=== PATIENT | male | born 1945 | race Caucasian/White ===

== ENCOUNTER 2016-05-22 21:19 | Inpatient (IN) | payer MEDICARE, BC ==
[~2016-05-22] VITALS: Ht 180.3 cm; Wt 87.0 kg
[2016-05-22 22:02] VITALS: BP 174/89; PULSE 76; TEMP 99.5
[2016-05-22] MEDS ORDERED: TENORMIN 2525 MG/TAB PO (23:02)
[2016-05-22] MEDS ORDERED: PLAVIX 75MG TAB75 MG PO (23:10)
[2016-05-22] MEDS ORDERED: CARTIA XT120 MG PO (23:12)
[2016-05-22] MEDS ORDERED: CATAPRES0.2 MG PO (23:14)
[2016-05-22] MEDS ORDERED: LANOXIN 0.120.125 MG PO (23:17)
[2016-05-22] MEDS ORDERED: PRINIVIL5 MG PO (23:18)
[2016-05-22 23:20] VITALS: BP 169/99; PULSE 77; TEMP 98.9
[2016-05-22] MEDS ORDERED: RT SPIRIVA18 MCG IH (23:20)
[2016-05-22] MEDS ORDERED: ANAFRANIL 25MG25 MG PO (23:22)
[2016-05-22] MEDS ORDERED: RITALIN SR20 MG PO (23:24)
[2016-05-22] MEDS ORDERED: QUESTRAN4 GM/9 GM PO (23:25)
[2016-05-22] MEDS ORDERED: ZYLOPRIM 100MG100 MG PO (23:27)
[2016-05-22] MEDS ORDERED: ZANTAC 150MG T150 MG PO (23:29)
[2016-05-22] MEDS ORDERED: PRILOSEC 20MG20 MG PO (23:39)
[2016-05-22] MEDS ORDERED: XYREM500 MG/ML PO (23:44)
[2016-05-22] MEDS ORDERED: HYGROTON 2525 MG/TAB PO (23:46)
[2016-05-23] VITALS (536 sets, daily range): BP systolic 133–191; BP diastolic 69–110; PULSE 56–150; TEMP 97.2–98.5; O2SAT 83–100
[2016-05-23 02:32] LABS: TROPONIN-I 0.063 ng/mL (0.000-0.034)
[2016-05-23 08:19] LABS: ADJUSTED CALCIUM 9.1 mg/dL (8.4-10.2); ALBUMIN 3.7 gm/dL (3.5-5.0); BILIRUBIN,TOTAL 0.7 mg/dL (0.0-1.0); CALCIUM 8.9 mg/dL (8.4-10.2); CREATININE, serum 1.43 mg/dL (0.66-1.25); TOTAL PROTEIN 7.4 gm/dL (6.4-8.2)
[2016-05-23 08:20] LABS: BASO % 0.6 % (0.0-2.0); EOS # 0.1 (0.0-0.7); EOS % 1.1 % (0-4.0); GRAN % 63.8 % (42.2-75.2); HEMATOCRIT 47.1 % (42.0-52.0); LYMPH % 15.5 % (20.0-51.0); MEAN CELL VOLUME 88 fl (80.0-100.0); MEAN CORPUSCULAR HEMOGLOBIN 30 pg (27.0-31.0); MEAN CORPUSCULAR HGB CONC 34 g/dl (33.0-37.0); MEAN PLATELET VOLUME 10.6 fl (7.4-10.4); MONO # 1.1 (0.1-0.6); MONO % 17.9 % (1.7-9.3); PLATELET COUNT 140 K/mm3 (130-400); RED BLOOD COUNT 5.36 M/mm3 (4.20-5.60); REDCELL DISTRIBUTION WIDTH-CV 13.5 % (11.5-14.5); WHITE BLOOD COUNT 6.2 K/mm3 (4.8-10.8)
[2016-05-23 12:24] LABS: MAGNESIUM 2.1 mg/dL (1.6-2.3)
[2016-05-23 12:28] LABS: PARTIAL THROMBOPLASTIN TIME 31.7 SECONDS (26.0-37.0)
[2016-05-23 12:44] LABS: TROPONIN-I 0.09 ng/mL (0.000-0.034)
[2016-05-24] VITALS (320 sets, daily range): BP systolic 146–193; BP diastolic 72–97; PULSE 56–97; TEMP 98.1–99.9; O2SAT 87–100
[2016-05-24 06:03] LABS: BASO % 0.4 % (0.0-2.0); EOS # 0.3 (0.0-0.7); EOS % 4.2 % (0-4.0); GRAN # 5.2 (1.4-6.5); GRAN % 69.5 % (42.2-75.2); HEMOGLOBIN 14.4 g/dl (13.5-18.0); LYMPH % 12.7 % (20.0-51.0); MEAN CELL VOLUME 90 fl (80.0-100.0); MEAN CORPUSCULAR HEMOGLOBIN 29 pg (27.0-31.0); MEAN CORPUSCULAR HGB CONC 33 g/dl (33.0-37.0); MEAN PLATELET VOLUME 11.1 fl (7.4-10.4); MONO % 12.9 % (1.7-9.3); PLATELET COUNT 164 K/mm3 (130-400); REDCELL DISTRIBUTION WIDTH-CV 13.7 % (11.5-14.5); WHITE BLOOD COUNT 7.5 K/mm3 (4.8-10.8)
[2016-05-24 06:12] LABS: CALCIUM 8.3 mg/dL (8.4-10.2); CREATININE, serum 1.39 mg/dL (0.66-1.25); POTASSIUM 3.9 mmol/L (3.4-5.0)
[2016-05-24 06:26] LABS: TROPONIN-I 0.047 ng/mL (0.000-0.034)
[2016-05-25] VITALS (8 sets, daily range): BP systolic 135–174; BP diastolic 61–100; PULSE 58–65; TEMP 98.2–98.7
[2016-05-25 08:36] LABS: HEMATOCRIT 43.6 % (42.0-52.0); HEMOGLOBIN 14.8 g/dl (13.5-18.0); MEAN CELL VOLUME 88 fl (80.0-100.0); MEAN CORPUSCULAR HEMOGLOBIN 30 pg (27.0-31.0); MEAN CORPUSCULAR HGB CONC 34 g/dl (33.0-37.0); PLATELET COUNT 169 K/mm3 (130-400); RED BLOOD COUNT 4.93 M/mm3 (4.20-5.60); REDCELL DISTRIBUTION WIDTH-CV 13.5 % (11.5-14.5); WHITE BLOOD COUNT 8.2 K/mm3 (4.8-10.8)
[2016-05-25] MEDS ORDERED: BETAPACE 80MG80 MG PO (11:52)
[2016-05-25] MEDS ORDERED: ASPIRIN E.C. 8181 MG PO (11:52)
[2016-05-25] MEDS ORDERED: TAMIFLU30 MG PO (11:52)
== END 2016-05-25 14:30 | disposition home or self-care (01) | DRG 871 ==
LOC: ICU 21:19 → MEDICAL 21:19 → PEDS 21:19 → ICU 05-23 11:40 → PEDS 05-24 11:30
PROVIDERS: Internal Medicine
DX: A41.9 Sepsis, unspecified organism (principal); I21.4 Non-ST elevation (NSTEMI) myocardial infarction; E87.1 Hypo-osmolality and hyponatremia; N17.9 Acute kidney failure, unspecified; E44.1 Mild protein-calorie malnutrition; J11.1 Influenza due to unidentified influenza virus with other respiratory manifestations; E87.6 Hypokalemia; E83.42 Hypomagnesemia; I12.9 Hypertensive chronic kidney disease with stage 1 through stage 4 chronic kidney disease, or unspecified chronic kidney disease; E11.22 Type 2 diabetes mellitus with diabetic chronic kidney disease; N18.9 Chronic kidney disease, unspecified; I67.2 Cerebral atherosclerosis; J44.9 Chronic obstructive pulmonary disease, unspecified; Z85.038 Personal history of other malignant neoplasm of large intestine; Z87.891 Personal history of nicotine dependence; I48.0 Paroxysmal atrial fibrillation
CPT/HCPCS: 99223-AI; 99232-AI; 99233-AI; 99239; A9502; J0360; J1644; J2785; J3475; J3480; J7030

== ENCOUNTER 2016-08-31 06:45 | Outpatient (CLI) | payer MEDICARE, BC ==
[~2016-08-31] VITALS: Ht 172.7 cm; Wt 89.5 kg
[~2016-08-31 06:45] MED LIST: ANAFRANIL 25MG25 MG PO; ASPIRIN E.C. 8181 MG PO; BETAPACE 80MG80 MG PO; CARTIA XT120 MG PO; CATAPRES0.2 MG PO; HYGROTON 2525 MG/TAB PO; LANOXIN 0.120.125 MG PO; PLAVIX 75MG TAB75 MG PO; PRILOSEC 20MG20 MG PO; PRINIVIL5 MG PO; QUESTRAN4 GM/9 GM PO; RITALIN SR20 MG PO; RT SPIRIVA18 MCG IH; TAMIFLU30 MG PO; TENORMIN 2525 MG/TAB PO; XYREM500 MG/ML PO; ZANTAC 150MG T150 MG PO; ZYLOPRIM 100MG100 MG PO
[2016-08-31] MEDS ORDERED: STIOLTO RESPIMAT4 GM IH (08:22)
[2016-08-31 08:25] LABS: HEMATOCRIT 43.6 % (42.0-52.0); HEMOGLOBIN 14.6 g/dl (13.5-18.0); MEAN CELL VOLUME 87 fl (80.0-100.0); MEAN CORPUSCULAR HEMOGLOBIN 29 pg (27.0-31.0); MEAN CORPUSCULAR HGB CONC 34 g/dl (33.0-37.0); MEAN PLATELET VOLUME 10.1 fl (7.4-10.4); PLATELET COUNT 191 K/mm3 (130-400); RED BLOOD COUNT 4.99 M/mm3 (4.20-5.60); REDCELL DISTRIBUTION WIDTH-CV 13.1 % (11.5-14.5); WHITE BLOOD COUNT 7.1 K/mm3 (4.8-10.8)
[2016-08-31] MEDS ORDERED: TAMBOCOR150 MG PO (08:25)
[2016-08-31 08:28] LABS: PROTHROMBIN TIME 11.2 SECONDS (9.7-12.8)
[2016-08-31 08:31] LABS: CALCIUM 8.8 mg/dL (8.4-10.2); CREATININE, serum 1.63 mg/dL (0.66-1.25); POTASSIUM 3.6 mmol/L (3.4-5.0)
[2016-08-31 08:34] VITALS: BP 165/99; PULSE 58; TEMP 97.8
[2016-08-31 09:15] VITALS: BP 154/93; PULSE 58
== END 2016-08-31 09:26 | disposition home or self-care (01) ==
LOC: COL.CAR 06:45
PROVIDERS: Internal Medicine Interventional Cardiology
DX: I48.0 Paroxysmal atrial fibrillation (principal); I95.9 Hypotension, unspecified; G47.33 Obstructive sleep apnea (adult) (pediatric); Z86.73 Personal history of transient ischemic attack (TIA), and cerebral infarction without residual deficits; Z79.01 Long term (current) use of anticoagulants; Z82.49 Family history of ischemic heart disease and other diseases of the circulatory system; Z83.3 Family history of diabetes mellitus; Z87.891 Personal history of nicotine dependence
CPT/HCPCS: C1764

== ENCOUNTER 2016-11-13 12:12 | Day surgery (SDC) | payer MEDICARE, BC ==
[~2016-11-13] VITALS: Ht 172.7 cm; Wt 87.3 kg
[~2016-11-13 12:12] MED LIST changes: +STIOLTO RESPIMAT4 GM IH; +TAMBOCOR150 MG PO
[2016-11-13 13:01] VITALS: BP 165/101; PULSE 65; TEMP 98.3
[2016-11-13] MEDS ORDERED: PRINIVIL5 MG PO (13:12)
[2016-11-13] MEDS ORDERED: CARTIA XT120 MG PO (13:13)
[2016-11-13] MEDS ORDERED: PLAVIX 75MG TAB75 MG PO (13:13)
[2016-11-13] MEDS ORDERED: HYGROTON 2525 MG/TAB PO (13:14)
[2016-11-13] MEDS ORDERED: ZYLOPRIM 100MG100 MG PO (13:15)
[2016-11-13] MEDS ORDERED: CATAPRES0.2 MG PO (13:15)
[2016-11-13] MEDS ORDERED: PRILOSEC 20MG20 MG PO (13:16)
[2016-11-13] MEDS ORDERED: RITALIN LA20 MG PO (13:17)
[2016-11-13] MEDS ORDERED: ANAFRANIL 25MG25 MG PO (13:18)
[2016-11-13] MEDS ORDERED: RT SPIRIVA18 MCG IH (13:18)
[2016-11-13] MEDS ORDERED: TAMBOCOR150 MG PO (13:19)
[2016-11-13] MEDS ORDERED: XYREM500 MG/ML PO (13:20)
[2016-11-13] MEDS ORDERED: THEO-24 30300 MG/CAP PO (13:21)
[2016-11-13] MEDS ORDERED: PROAIR HFA0.09 MG/AC IH (13:21)
[2016-11-13 14:17] VITALS: BP 100/72; PULSE 63
[2016-11-13 14:32] VITALS: BP 165/101; PULSE 70
[2016-11-13 14:47] VITALS: BP 143/88; PULSE 63
[2016-11-13 15:27] VITALS: BP 115/79; PULSE 60
== END 2016-11-13 14:50 | disposition home or self-care (01) ==
LOC: SDCO 12:12
DX: D12.3 Benign neoplasm of transverse colon (principal); D12.5 Benign neoplasm of sigmoid colon; K57.30 Diverticulosis of large intestine without perforation or abscess without bleeding; K64.0 First degree hemorrhoids; K63.89 Other specified diseases of intestine; K62.5 Hemorrhage of anus and rectum; K21.9 Gastro-esophageal reflux disease without esophagitis; E11.9 Type 2 diabetes mellitus without complications; J44.9 Chronic obstructive pulmonary disease, unspecified; G47.33 Obstructive sleep apnea (adult) (pediatric); G47.411 Narcolepsy with cataplexy; M10.9 Gout, unspecified; I48.91 Unspecified atrial fibrillation; Z86.73 Personal history of transient ischemic attack (TIA), and cerebral infarction without residual deficits; Z85.038 Personal history of other malignant neoplasm of large intestine; Z89.029 Acquired absence of unspecified finger(s); Z79.01 Long term (current) use of anticoagulants; Z95.818 Presence of other cardiac implants and grafts; Z90.49 Acquired absence of other specified parts of digestive tract; Z86.010 Personal history of colon polyps; Z87.891 Personal history of nicotine dependence
CPT/HCPCS: OP; J2704; J7030

== ENCOUNTER 2017-01-18 09:03 | Day surgery (SDC) | payer MEDICARE, BC ==
[2017-01-18] VITALS (14 sets, daily range): BP systolic 122–182; BP diastolic 11–120; PULSE 51–93; TEMP 97.8–98.2
[~2017-01-18] VITALS: Ht 172.8 cm; Wt 90.0 kg
[~2017-01-18 09:03] MED LIST changes: +PROAIR HFA0.09 MG/AC IH; +RITALIN LA20 MG PO; +THEO-24 30300 MG/CAP PO
[2017-01-18] MEDS ORDERED: ZANTAC 150MG T150 MG PO (09:47)
[2017-01-18] MEDS ORDERED: PROAIR HFA0.09 MG/AC IH (09:47)
[2017-01-18 09:48] LABS: HEMATOCRIT 44.9 % (42.0-52.0); MEAN CELL VOLUME 88 fl (80.0-100.0); MEAN CORPUSCULAR HEMOGLOBIN 29 pg (27.0-31.0); MEAN CORPUSCULAR HGB CONC 33 g/dl (33.0-37.0); PLATELET COUNT 256 K/mm3 (130-400); WHITE BLOOD COUNT 9.5 K/mm3 (4.8-10.8)
[2017-01-18] MEDS ORDERED: MUCINEX 60600 MG/TA1 PO (09:48)
[2017-01-18] MEDS ORDERED: BREO IH (09:48)
[2017-01-18 09:52] LABS: CALCIUM 9.5 mg/dL (8.4-10.2); CREATININE, serum 1.68 mg/dL (0.66-1.25); POTASSIUM 3.6 mmol/L (3.4-5.0)
[2017-01-18 10:17] LABS: PROTHROMBIN TIME 11.4 SECONDS (9.7-12.8)
== END 2017-01-18 16:34 | disposition home or self-care (01) ==
LOC: COL.CAR 09:03
PROVIDERS: Internal Medicine Interventional Cardiology
DX: I25.10 Atherosclerotic heart disease of native coronary artery without angina pectoris (principal); I48.91 Unspecified atrial fibrillation; G47.33 Obstructive sleep apnea (adult) (pediatric); M79.605 Pain in left leg; M79.604 Pain in right leg; Z86.73 Personal history of transient ischemic attack (TIA), and cerebral infarction without residual deficits; Z95.818 Presence of other cardiac implants and grafts; Z87.891 Personal history of nicotine dependence; Z83.3 Family history of diabetes mellitus; Z82.3 Family history of stroke; Z82.49 Family history of ischemic heart disease and other diseases of the circulatory system; Z79.01 Long term (current) use of anticoagulants
CPT/HCPCS: C1760; C1894; J0360; J1940; J2250; J3010; Q9967

== ENCOUNTER 2017-04-05 18:14 | Emergency (ER) | payer MEDICARE, BC ==
[~2017-04-05 18:14] MED LIST changes: +BREO IH; +MUCINEX 60600 MG/TA1 PO
[2017-04-05 18:26] VITALS: TEMP 98.3
[2017-04-05 19:21] LABS: BASO # 0.1 (0.0-0.2); BASO % 1.1 % (0.0-2.0); EOS # 0.3 (0.0-0.7); EOS % 2.6 % (0-4.0); GRAN # 6.7 (1.4-6.5); GRAN % 68.2 % (42.2-75.2); HEMATOCRIT 45.6 % (42.0-52.0); HEMOGLOBIN 15.4 g/dl (13.5-18.0); LYMPH # 1.7 (1.2-3.4); LYMPH % 17.2 % (20.0-51.0); MEAN CELL VOLUME 87 fl (80.0-100.0); MEAN CORPUSCULAR HEMOGLOBIN 29 pg (27.0-31.0); MEAN CORPUSCULAR HGB CONC 34 g/dl (33.0-37.0); MEAN PLATELET VOLUME 9.9 fl (7.4-10.4); MONO % 10.3 % (1.7-9.3); PLATELET COUNT 225 K/mm3 (130-400); RED BLOOD COUNT 5.25 M/mm3 (4.20-5.60); REDCELL DISTRIBUTION WIDTH-CV 13.9 % (11.5-14.5)
[2017-04-05 19:28] LABS: ALANINE AMINOTRANSFERASE 35 U/L (21-72); ALBUMIN 4.4 gm/dL (3.5-5.0); ALKALINE PHOSPHATASE 89 U/L (50-136); ANION GAP 10 mmol/L (7-16); AST,SGOT 24 U/L (15-37); BILIRUBIN,TOTAL 0.4 mg/dL (0.0-1.0); BLOOD UREA NITROGEN 23 mg/dL (9-20); C-REACTIVE PROTEIN 1.1 mg/dL (0.0-0.9); CALCIUM 9.6 mg/dL (8.4-10.2); CARBON DIOXIDE 29 mmol/L (22-30); CHLORIDE 98 mmol/L (98-107); CREATINE KINASE 162 U/L (55-170); CREATININE, serum 1.68 mg/dL (0.66-1.25); GLUCOSE 141 mg/dL (74-106); LIPASE 49 U/L (23-300); POTASSIUM 3.5 mmol/L (3.4-5.0); SODIUM 137 mmol/L (137-145); TOTAL PROTEIN 7.5 gm/dL (6.4-8.2)
[2017-04-05 19:30] LABS: INFLUENZA A NEGATIVE; INFLUENZA B NEGATIVE
[2017-04-05 19:48] LABS: TROPONIN-I < 0.012 ng/mL (0.000-0.034)
[2017-04-05] MEDS ORDERED: DOXYCYCLINE 10100 MG PO (20:35)
[2017-04-05] MEDS ORDERED: PREDNISONE20 MG PO (20:35)
[2017-04-05 21:35] VITALS: BP 186/125; PULSE 60
== END 2017-04-05 21:43 | disposition home or self-care (01) ==
LOC: COL.ER 18:14
PROVIDERS: Emergency Medicine
DX: J44.1 Chronic obstructive pulmonary disease with (acute) exacerbation (principal); I10 Essential (primary) hypertension; R60.9 Edema, unspecified; I48.91 Unspecified atrial fibrillation; E11.9 Type 2 diabetes mellitus without complications; Z87.891 Personal history of nicotine dependence
CPT/HCPCS: J2930

== ENCOUNTER 2019-09-05 15:09 | Emergency (ER) | payer MEDICARE, BC ==
[~2019-09-05] VITALS: Ht 180.3 cm; Wt 83.2 kg
[~2019-09-05 15:09] MED LIST changes: +DOXYCYCLINE 10100 MG PO; +PREDNISONE20 MG PO
[2019-09-05 15:22] VITALS: TEMP 96.6
[2019-09-05 16:01] LABS: BASO # 0.1 (0.0-0.2); BASO % 1.2 % (0.0-2.0); EOS # 0.2 (0.0-0.7); EOS % 2.9 % (0-4.0); GRAN # 4.8 (1.4-6.5); GRAN % 69.3 % (42.2-75.2); HEMATOCRIT 43.2 % (42.0-52.0); HEMOGLOBIN 14.2 g/dl (13.5-18.0); LYMPH # 1.1 (1.2-3.4); LYMPH % 16.4 % (20.0-51.0); MEAN CELL VOLUME 89 fl (80.0-100.0); MEAN CORPUSCULAR HEMOGLOBIN 29 pg (27.0-31.0); MEAN CORPUSCULAR HGB CONC 33 g/dl (33.0-37.0); MEAN PLATELET VOLUME 9.6 fl (7.4-10.4); MONO # 0.7 (0.1-0.6); MONO % 9.8 % (1.7-9.3); PLATELET COUNT 227 K/mm3 (130-400); RED BLOOD COUNT 4.84 M/mm3 (4.20-5.60)
[2019-09-05 16:16] LABS: BILIRUBIN,TOTAL 0.5 mg/dL (0.0-1.0); C-REACTIVE PROTEIN 0.6 mg/dL (0.0-0.9); CALCIUM 9.4 mg/dL (8.4-10.2); CREATININE, serum 1.9 (0.66-1.25); POTASSIUM 3.1 mmol/L (3.4-5.0); TOTAL PROTEIN 7.3 gm/dL (6.4-8.2)
[2019-09-05] MEDS ORDERED: ANTIVERT 25MG25 MG PO (16:39)
[2019-09-05 16:49] VITALS: BP 177/96; PULSE 63
== END 2019-09-05 17:10 | disposition home or self-care (01) ==
LOC: COL.ER 15:09
PROVIDERS: Emergency Medicine
DX: R42 Dizziness and giddiness (principal); I10 Essential (primary) hypertension; G20 Parkinson's disease; Z79.01 Long term (current) use of anticoagulants
CPT/HCPCS: J2060; J7030